=== PATIENT | female | born 1950 | race African-American/Black ===

== ENCOUNTER 2021-04-28 13:42 | Inpatient (IN) | payer MEDICARE, MEDICAID ==
[~2021-04-28] VITALS: Ht 162.6 cm; Wt 120.4 kg
[2021-04-28] MEDS ORDERED: FAMO-135 PO (14:15)
[2021-04-28] MEDS ORDERED: ATOR20TA65 PO (14:15)
[2021-04-28] MEDS ORDERED: FURO20TA4 PO (14:15)
[2021-04-28] MEDS ORDERED: INSLIS SUBCUT (14:15)
[2021-04-28] MEDS ORDERED: DOCU-138 PO (14:15)
[2021-04-28] MEDS ORDERED: FUROSEMIDE 40MG/4ML VIAL IV ONE (14:45)
[2021-04-28] MEDS ORDERED: ASPIRIN 81MG TABLET PO ONE (14:45)
[2021-04-28] MEDS ORDERED: NITROGLYCERIN OINT 1GM/INCH UDPKT TD ONE (14:45)
[2021-04-28 15:51] LABS: HEMATOCRIT. 29.5 % (36.0-48.0); HEMOGLOBIN. 9.4 g/dL (12.0-16.0); RED BLOOD CELL COUNT 3.35 mill/uL (4.2-5.4); RED CELL DISTRIBUTION WIDTH 19.5 % (11.6-14.6)
[2021-04-28 15:54] LABS: CHLORIDE 99 mEq/L (98-107)
[2021-04-28 16:51] LABS: MEAN PLATELET VOLUME 7.4 fl (7.4-10.4); PLATELET 311 x1000/uL (130-400)
[2021-04-28 16:52] LABS: PLATELET ESTIMATE NORMAL
[2021-04-28 23:23] VITALS: BP 155/83
[2021-04-29] VITALS: BP 155/83
[2021-04-29] MEDS ORDERED: DEXTROSE 50% WATER 50ML SYRINGE IV PRN (00:30)
[2021-04-29] MEDS ORDERED: OXYCODONE HCL/ACETAMINOPHEN 5/325MG TABLET PO PRN (00:30)
[2021-04-29 04:00] VITALS: BP 125/80
[2021-04-29] MEDS: BLOOD SUGAR DIAGNOSTIC STRIP TEST SCH ×4 (06:26→20:29)
[2021-04-29 06:52] LABS: CHLORIDE 97 mEq/L (98-107)
[2021-04-29 06:57] LABS: BASOPHILS % 0.7 % (0.0-2.0); HEMOGLOBIN. 9.4 g/dL (12.0-16.0); LYMPHOCYTES % 19.7 % (20.0-50.0); MEAN CORPUSCULAR HEMOGLOBIN 28.3 pg (28.0-32.0); MEAN CORPUSCULAR VOLUME 90.2 fL (81.0-99.0); MEAN PLATELET VOLUME 7.7 fl (7.4-10.4); MONOCYTES % 11.6 % (2.0-8.0); PLATELET 327 x1000/uL (130-400); RED BLOOD CELL COUNT 3.32 mill/uL (4.2-5.4); RED CELL DISTRIBUTION WIDTH 19.8 % (11.6-14.6)
[2021-04-29] MEDS: INSULIN LISPRO 100 UNITS/ML SUBCUT SCH ×4 (07:40→21:29)
[2021-04-29 08:00] VITALS: BP 140/55
[2021-04-29] MEDS ORDERED: POTASSIUM CHLORIDE 8 MEQ TABLET.SA PO SCH (09:00)
[2021-04-29] MEDS: DOCUSATE SODIUM 250MG CAPSULE PO SCH (09:00)
[2021-04-29] MEDS: LOSARTAN POTASSIUM 100 MG TABLET PO SCH (09:50)
[2021-04-29] MEDS: AMLODIPINE 5MG TABLET PO SCH (09:50)
[2021-04-29] MEDS: CLOPIDOGREL 75MG TABLET PO SCH (09:50)
[2021-04-29] MEDS: ASPIRIN 81MG TABLET PO SCH (09:50)
[2021-04-29] MEDS: FUROSEMIDE 40MG/4ML VIAL IVP SCH ×2 (09:51→17:39)
[2021-04-29 12:00] VITALS: BP 160/55
[2021-04-29] MEDS: IPRATROPIUM/ALBUTEROL 0.5-3(2.5)MG/3ML NEB HHN SCH ×2 (13:22→21:34)
[2021-04-29 16:00] VITALS: BP 150/66
[2021-04-29 20:00] VITALS: BP 131/69
[2021-04-29] MEDS ORDERED: NALOXONE HCL 0.4MG/ML VIAL IV PRN (20:45)
[2021-04-29] MEDS: LACTULOSE 20G/30ML UDC PO SCH (21:00)
[2021-04-29] MEDS: ATORVASTATIN CALCIUM 40MG TABLET PO SCH (21:26)
[2021-04-29] MEDS: OXYCODONE HCL/ACETAMINOPHEN 5/325MG TABLET PO PRN (23:05)
[2021-04-30] VITALS: BP 99/52
[2021-04-30] MEDS: IPRATROPIUM/ALBUTEROL 0.5-3(2.5)MG/3ML NEB HHN SCH ×4 (01:35→21:15)
[2021-04-30 04:00] VITALS: BP 117/69
[2021-04-30] MEDS: BLOOD SUGAR DIAGNOSTIC STRIP TEST SCH ×4 (05:37→21:00)
[2021-04-30] MEDS: INSULIN LISPRO 100 UNITS/ML SUBCUT SCH ×4 (05:37→21:00)
[2021-04-30] MEDS ORDERED: METOLAZONE 2.5MG TABLET PO NR (06:30)
[2021-04-30] MEDS: FUROSEMIDE 40MG/4ML VIAL IVP SCH ×2 (07:22→16:53)
[2021-04-30 07:31] LABS: CHLORIDE 96 mEq/L (98-107)
[2021-04-30 07:38] LABS: BASOPHILS % 0.4 % (0.0-2.0); EOSINOPHILS % 4.1 % (0.0-5.0); HEMATOCRIT. 31.4 % (36.0-48.0); HEMOGLOBIN. 9.8 g/dL (12.0-16.0); LYMPHOCYTES % 24.6 % (20.0-50.0); MEAN CORPUSCULAR HEMOGLOBIN 28.3 pg (28.0-32.0); MEAN CORPUSCULAR VOLUME 90.5 fL (81.0-99.0); MEAN PLATELET VOLUME 7.3 fl (7.4-10.4); MONOCYTES % 11.5 % (2.0-8.0); NEUTROPHILS % 59.4 % (40.0-76.0); PLATELET 303 x1000/uL (130-400); RED BLOOD CELL COUNT 3.47 mill/uL (4.2-5.4); RED CELL DISTRIBUTION WIDTH 19.2 % (11.6-14.6)
[2021-04-30 08:00] VITALS: BP 112/63
[2021-04-30] MEDS: LOSARTAN POTASSIUM 100 MG TABLET PO SCH (09:01)
[2021-04-30] MEDS: AMLODIPINE 5MG TABLET PO SCH (09:01)
[2021-04-30] MEDS: DOCUSATE SODIUM 250MG CAPSULE PO SCH (09:01)
[2021-04-30] MEDS: CLOPIDOGREL 75MG TABLET PO SCH (09:01)
[2021-04-30] MEDS: ASPIRIN 81MG TABLET PO SCH (09:01)
[2021-04-30 12:00] VITALS: BP 122/48
[2021-04-30] MEDS: OXYCODONE HCL/ACETAMINOPHEN 5/325MG TABLET PO PRN ×2 (12:47→23:17)
[2021-04-30 16:00] VITALS: BP 98/54
[2021-04-30] MEDS: ALPRAZOLAM 0.25 MG TABLET PO PRN (16:54)
[2021-04-30 17:20] LABS: BG BASE EXCESS 17.1 mmol/L (-2.0-2.0); BG CARBOXYHEMOGLOBIN 0.4 % (0.5-1.5); BG DEOXYHEMOGLOBIN 2.4 % (0.0-5.0); BG FRACTION INSPIRED OXYGEN 40; BG HCO3 ACT 43.7 mmol/L (22.0-26.0); BG METHEMOGLOBIN 0.4 % (0.0-1.5); BG OXYGEN SATURATION 97.6 % (92.0-98.5); BG OXYHEMOGLOBIN 96.8 % (94.0-97.0); BG PCO2 63.2 mmHg (35.0-45.0); BG PH 7.458 (7.350-7.450); BG PO2 101.8 mmHg (75.0-100.0); BG SAMPLE SITE RIGHT RADIAL; BG TOTAL HEMOGLOBIN 11.4 g/dL (12.0-18.0); BG VENT MODE MASK - CPAP
[2021-04-30 20:00] VITALS: BP 122/69
[2021-04-30] MEDS: LACTULOSE 20G/30ML UDC PO SCH (21:00)
[2021-04-30] MEDS: ATORVASTATIN CALCIUM 40MG TABLET PO SCH (21:32)
[2021-05-01] VITALS: BP 100/51
[2021-05-01] MEDS: IPRATROPIUM/ALBUTEROL 0.5-3(2.5)MG/3ML NEB HHN SCH ×4 (01:25→21:03)
[2021-05-01 04:00] VITALS: BP 128/45
[2021-05-01] MEDS ORDERED: LIDOCAINE HCL/PF 1% 2ML VIAL ONE (05:00)
[2021-05-01] MEDS: BLOOD SUGAR DIAGNOSTIC STRIP TEST SCH ×4 (06:48→21:00)
[2021-05-01] MEDS: INSULIN LISPRO 100 UNITS/ML SUBCUT SCH ×4 (06:48→21:00)
[2021-05-01] MEDS: FUROSEMIDE 40MG/4ML VIAL IVP SCH ×2 (06:48→16:37)
[2021-05-01 08:43] VITALS: BP 144/75
[2021-05-01] MEDS: LOSARTAN POTASSIUM 100 MG TABLET PO SCH (10:03)
[2021-05-01] MEDS: DOCUSATE SODIUM 250MG CAPSULE PO SCH (10:03)
[2021-05-01] MEDS: ASPIRIN 81MG TABLET PO SCH (10:04)
[2021-05-01] MEDS: AMLODIPINE 5MG TABLET PO SCH ×2 (10:04→17:05)
[2021-05-01] MEDS: CLOPIDOGREL 75MG TABLET PO SCH (10:04)
[2021-05-01 10:19] LABS: BG BASE EXCESS 14.1 mmol/L (-2.0-2.0); BG CARBOXYHEMOGLOBIN 0.8 % (0.5-1.5); BG DEOXYHEMOGLOBIN 6.7 % (0.0-5.0); BG HCO3 ACT 40.9 mmol/L (22.0-26.0); BG METHEMOGLOBIN 0.3 % (0.0-1.5); BG OXYGEN SATURATION 93.2 % (92.0-98.5); BG OXYHEMOGLOBIN 92.2 % (94.0-97.0); BG PCO2 64.4 mmHg (35.0-45.0); BG PH 7.421 (7.350-7.450); BG PO2 69.4 mmHg (75.0-100.0); BG SAMPLE SITE RIGHT RADIAL; BG TOTAL HEMOGLOBIN 10.6 g/dL (12.0-18.0); BG VENT MODE NASAL CANNULA
[2021-05-01] MEDS: HYDROCODONE/APAP 7.5/325MG 1 TAB TABLET PO PRN ×2 (10:46→21:14)
[2021-05-01 12:00] VITALS: BP 105/35
[2021-05-01] MEDS: ALPRAZOLAM 0.25 MG TABLET PO PRN (14:02)
[2021-05-01 16:32] VITALS: BP 113/57
[2021-05-01 20:00] VITALS: BP 98/53
[2021-05-01] MEDS: LACTULOSE 20G/30ML UDC PO SCH (21:00)
[2021-05-01] MEDS: ATORVASTATIN CALCIUM 40MG TABLET PO SCH (21:13)
[2021-05-02] VITALS: BP 148/124
[2021-05-02] MEDS: IPRATROPIUM/ALBUTEROL 0.5-3(2.5)MG/3ML NEB HHN SCH ×4 (01:40→22:05)
[2021-05-02 04:00] VITALS: BP 110/54
[2021-05-02] MEDS: INSULIN LISPRO 100 UNITS/ML SUBCUT SCH ×4 (06:26→20:41)
[2021-05-02] MEDS: FUROSEMIDE 40MG/4ML VIAL IVP SCH ×3 (06:26→17:36)
[2021-05-02] MEDS: BLOOD SUGAR DIAGNOSTIC STRIP TEST SCH ×4 (06:26→20:41)
[2021-05-02 07:28] LABS: BASOPHILS % 0.3 % (0.0-2.0); EOSINOPHILS % 3.8 % (0.0-5.0); HEMOGLOBIN. 9.4 g/dL (12.0-16.0); LYMPHOCYTES % 23.6 % (20.0-50.0); MEAN CORPUSCULAR HEMOGLOBIN 28.5 pg (28.0-32.0); MEAN CORPUSCULAR VOLUME 88.1 fL (81.0-99.0); MEAN PLATELET VOLUME 7.1 fl (7.4-10.4); MONOCYTES % 9.9 % (2.0-8.0); NEUTROPHILS % 62.4 % (40.0-76.0); PLATELET 309 x1000/uL (130-400); RED BLOOD CELL COUNT 3.29 mill/uL (4.2-5.4); RED CELL DISTRIBUTION WIDTH 19.2 % (11.6-14.6)
[2021-05-02 07:53] LABS: CHLORIDE 93 mEq/L (98-107)
[2021-05-02] MEDS: DOCUSATE SODIUM 250MG CAPSULE PO SCH (08:33)
[2021-05-02] MEDS: ASPIRIN 81MG TABLET PO SCH (08:33)
[2021-05-02] MEDS: OXYCODONE HCL/ACETAMINOPHEN 5/325MG TABLET PO PRN (08:34)
[2021-05-02] MEDS: LOSARTAN POTASSIUM 100 MG TABLET PO SCH (08:34)
[2021-05-02] MEDS: AMLODIPINE 5MG TABLET PO SCH ×2 (08:34→17:36)
[2021-05-02] MEDS: CLOPIDOGREL 75MG TABLET PO SCH (08:34)
[2021-05-02 12:00] VITALS: BP 112/53
[2021-05-02 16:00] VITALS: BP 112/53
[2021-05-02] MEDS: ALPRAZOLAM 0.25 MG TABLET PO PRN (16:03)
[2021-05-02 20:00] VITALS: BP 114/57
[2021-05-02] MEDS: ATORVASTATIN CALCIUM 40MG TABLET PO SCH (20:41)
[2021-05-02] MEDS: LACTULOSE 20G/30ML UDC PO SCH (20:41)
[2021-05-03] VITALS (7 sets, daily range): BP systolic 107–141; BP diastolic 54–87
[2021-05-03] MEDS: HYDROCODONE/APAP 7.5/325MG 1 TAB TABLET PO PRN (05:21)
[2021-05-03] MEDS: IPRATROPIUM/ALBUTEROL 0.5-3(2.5)MG/3ML NEB HHN SCH ×3 (05:49→15:55)
[2021-05-03] MEDS: INSULIN LISPRO 100 UNITS/ML SUBCUT SCH ×4 (05:50→21:00)
[2021-05-03] MEDS: BLOOD SUGAR DIAGNOSTIC STRIP TEST SCH ×4 (05:51→19:32)
[2021-05-03] MEDS: FUROSEMIDE 40MG/4ML VIAL IVP SCH ×2 (05:52→17:15)
[2021-05-03] MEDS: ASPIRIN 81MG TABLET PO SCH (09:22)
[2021-05-03] MEDS: CLOPIDOGREL 75MG TABLET PO SCH (09:22)
[2021-05-03] MEDS: DOCUSATE SODIUM 250MG CAPSULE PO SCH (09:22)
[2021-05-03] MEDS: LOSARTAN POTASSIUM 100 MG TABLET PO SCH (09:23)
[2021-05-03] MEDS: AMLODIPINE 5MG TABLET PO SCH ×2 (09:23→17:00)
[2021-05-03] MEDS: ALPRAZOLAM 0.25 MG TABLET PO PRN (12:42)
[2021-05-03] MEDS: MAGNESIUM/ALUMINUM HYDROXIDE/SIMETHICONE 30ML UDC PO PRN (12:43)
[2021-05-03] MEDS: LACTULOSE 20G/30ML UDC PO SCH (21:00)
[2021-05-03] MEDS: OXYCODONE HCL/ACETAMINOPHEN 5/325MG TABLET PO PRN (21:16)
[2021-05-03] MEDS: ATORVASTATIN CALCIUM 40MG TABLET PO SCH (21:16)
[2021-05-04] VITALS: BP 110/51
[2021-05-04 04:00] VITALS: BP 99/42
[2021-05-04] MEDS: BLOOD SUGAR DIAGNOSTIC STRIP TEST SCH ×2 (05:13→12:10)
[2021-05-04] MEDS: INSULIN LISPRO 100 UNITS/ML SUBCUT SCH ×2 (05:55→12:23)
[2021-05-04 06:02] LABS: CHLORIDE 97 mEq/L (98-107)
[2021-05-04 06:23] LABS: BASOPHILS % 0.5 % (0.0-2.0); EOSINOPHILS % 5.2 % (0.0-5.0); HEMATOCRIT. 32.8 % (36.0-48.0); HEMOGLOBIN. 10.5 g/dL (12.0-16.0); LYMPHOCYTES % 31.7 % (20.0-50.0); MEAN CORPUSCULAR HEMOGLOBIN 28.3 pg (28.0-32.0); MEAN CORPUSCULAR VOLUME 88.5 fL (81.0-99.0); MEAN PLATELET VOLUME 7.4 fl (7.4-10.4); NEUTROPHILS % 51.6 % (40.0-76.0); PLATELET 296 x1000/uL (130-400); RED BLOOD CELL COUNT 3.71 mill/uL (4.2-5.4); RED CELL DISTRIBUTION WIDTH 18.6 % (11.6-14.6)
[2021-05-04] MEDS: FUROSEMIDE 40MG/4ML VIAL IVP SCH (07:15)
[2021-05-04 08:00] VITALS: BP 107/56
[2021-05-04] MEDS: IPRATROPIUM/ALBUTEROL 0.5-3(2.5)MG/3ML NEB HHN SCH (08:55)
[2021-05-04] MEDS: AMLODIPINE 5MG TABLET PO SCH (09:00)
[2021-05-04] MEDS: LOSARTAN POTASSIUM 100 MG TABLET PO SCH ×2 (09:00→09:59)
[2021-05-04] MEDS: CLOPIDOGREL 75MG TABLET PO SCH (09:59)
[2021-05-04] MEDS: DOCUSATE SODIUM 250MG CAPSULE PO SCH (09:59)
[2021-05-04] MEDS: ASPIRIN 81MG TABLET PO SCH (09:59)
[2021-05-04] MEDS: MAGNESIUM/ALUMINUM HYDROXIDE/SIMETHICONE 30ML UDC PO PRN (10:13)
[2021-05-04] MEDS: OXYCODONE HCL/ACETAMINOPHEN 5/325MG TABLET PO PRN (12:13)
[2021-05-04] MEDS: HYDROCODONE/APAP 7.5/325MG 1 TAB TABLET PO PRN (12:18)
[2021-05-04 13:32] VITALS: BP 142/70
== END 2021-05-04 14:45 | DRG 194 ==
LOC: ER 13:42 → EDBEDREQTM 17:53 → EDBEDREQ 17:53 → ENRESERV 21:23 → 8WST 22:41
PROVIDERS: ADMIT Internal Medicine; ATTEND Internal Medicine
PROC: 5A09357 Assistance with Respiratory Ventilation, Less than 24 Consecutive Hours, Continuous Positive Airway Pressure (ICD-10-PCS; principal; 2021-04-29)
PROC: 5A09357 Assistance with Respiratory Ventilation, Less than 24 Consecutive Hours, Continuous Positive Airway Pressure (ICD-10-PCS; 2021-04-30)
PROC: 5A09357 Assistance with Respiratory Ventilation, Less than 24 Consecutive Hours, Continuous Positive Airway Pressure (ICD-10-PCS; 2021-05-01)
PROC: 5A09357 Assistance with Respiratory Ventilation, Less than 24 Consecutive Hours, Continuous Positive Airway Pressure (ICD-10-PCS; 2021-05-02)
PROC: 5A09357 Assistance with Respiratory Ventilation, Less than 24 Consecutive Hours, Continuous Positive Airway Pressure (ICD-10-PCS; 2021-05-03)
DX: I13.0 Hypertensive heart and chronic kidney disease with heart failure and stage 1 through stage 4 chronic kidney disease, or unspecified chronic kidney disease (principal); J96.21 Acute and chronic respiratory failure with hypoxia; E87.2 Acidosis; E46 Unspecified protein-calorie malnutrition; I27.20 Pulmonary hypertension, unspecified; E66.2 Morbid (severe) obesity with alveolar hypoventilation; E11.22 Type 2 diabetes mellitus with diabetic chronic kidney disease; D64.9 Anemia, unspecified; E78.5 Hyperlipidemia, unspecified; N18.9 Chronic kidney disease, unspecified; I25.10 Atherosclerotic heart disease of native coronary artery without angina pectoris; I50.33 Acute on chronic diastolic (congestive) heart failure; I49.1 Atrial premature depolarization; M19.079 Primary osteoarthritis, unspecified ankle and foot; M48.00 Spinal stenosis, site unspecified; M54.10 Radiculopathy, site unspecified; J44.9 Chronic obstructive pulmonary disease, unspecified; F32.9 Major depressive disorder, single episode, unspecified; E87.5 Hyperkalemia; F41.9 Anxiety disorder, unspecified; G89.29 Other chronic pain; M19.90 Unspecified osteoarthritis, unspecified site; M54.5 Low back pain; R26.2 Difficulty in walking, not elsewhere classified; Z83.3 Family history of diabetes mellitus; I25.2 Old myocardial infarction; Z82.49 Family history of ischemic heart disease and other diseases of the circulatory system; Z86.711 Personal history of pulmonary embolism; Z68.42 Body mass index [BMI] 45.0-49.9, adult; Z86.73 Personal history of transient ischemic attack (TIA), and cerebral infarction without residual deficits; Z95.1 Presence of aortocoronary bypass graft; Z86.718 Personal history of other venous thrombosis and embolism; Z79.899 Other long term (current) drug therapy; Z79.02 Long term (current) use of antithrombotics/antiplatelets; Z79.4 Long term (current) use of insulin; Z79.82 Long term (current) use of aspirin; Z87.891 Personal history of nicotine dependence; Z91.19 Patient's noncompliance with other medical treatment and regimen; Z88.0 Allergy status to penicillin; Z95.5 Presence of coronary angioplasty implant and graft
CPT/HCPCS: 36415; 36600; 71045; 74018; 80048; 80053; 82375; 82805; 82962; 83036; 83880; 84484; 85025; 87426; 93005; 93306; 93970; 94640; 94660; 97162; 99291; C1893; J1815; J1940; J3490